=== PATIENT | female | born 1940 | race Caucasian/White ===

== ENCOUNTER 2021-11-20 12:52 | Outpatient (REF) | payer MEDICARE, MEDICAID, SELFPAY ==
--- NOTE | 2021-11-20 15:25 | MHC.AU.AHA ---
Adult Audiological Evaluation Date of Visit: 11/20/21 Reason for Appointment: Audiological re-evaluation to monitor the status of Ms. Rubi's hearing loss. She has a known bilateral, sensorineural hearing loss and uses a hearing aid in the left ear only. She notes that she broke her leg in February 2021 and has been staying at [facility] since then. She denies any significant changes to her hearing, but is concerned that she may have cerumen build-up. Previous Hearing Test Results: [facility] [place], 07/04/2020- Normal hearing sloping to a mild to moderately-severe sensorineural hearing loss bilaterally. Ear History: History of Ear Wax Buildup: Both Ears Medical History: Medical History: High Blood Pressure Medical History: Rheumatoid arthritis. Receiving OT and PT at [facility] due to broken femur in February 2021. Allergies: Povidone-iodine, codeine, penicillin, oxycodone, acetaminophen, betadine, benedine Medication List: Acetaminophen 325 mg PRN, amlodipine besylate 10 mg, ammonium lactate cream 12%, Artificial tears 1%, Ascorbic acid 250 mg, Aspirin 81 mg, Calcium/Vitamin D, Cetirizine HCl 10 mg, Cholecalciferol 1000 units, Dulcolax suppository 10 mg PRN, Ferrous sulfate 325 mg, Fleet enema PRN, Fosamax tablet 20 mg, Gas-x tablet, Glycolax powder, Imodium A-D tablet 2 mg, Leflunomide 20 mg, Milk of magnesia suspension 400 mg/5 mL, multivitamin, omeprazole 20 mg, Probiotic, Senna tablet 8.6 mg Hearing Instrument History- Left Ear: [employer]: [employer] Model: Nera 2 miniBTE Serial Number: [id number] Battery Size: 312 Warranty: 06/03/2017 Loss and Damage Warranty: 06/03/2017 Dispensed By: [facility] Date of Fittin05/12/2015 Otoscopy: Right Ear: Partially occluding cerumen removed with lighted curette without incident Left Ear: Completely occluding cerumen removed with lighted curette without incident Hearing Evaluation: Transducer(s) Used: Insert Earphones, Bone Conduction Method: Conventional Audiometry Stimuli Used: Pure Tones Right Ear: Description of Hearing: Normal hearing from 250-500 Hz, sloping to a mild to moderately-severe sensorineural hearing loss from 4704-2568 Hz. Left Ear: Description of Hearing: Mild sloping to moderately-severe sensorineural hearing loss from 250-8000 Hz. Speech Recognition Threshold (SRT): Method Used: Monitored Live Voice Stimuli Used: Spondee Words Right Ear: 35 dBHL Left Ear: 35 dBHL Word Discrimination: Method: Recorded Lists Word Lists Used: NU-6 Right Ear: 96% at 75 dBHL Left Ear: 92% at 75 dBHL Comparison: Compared to the most recent evaluation: Hearing is stable. Recommendations: Audiological re-evaluation in one year. Hearing aid maintenance performed today. Recommend use of cerumen softening/removal drops on a monthly basis to help prevent cerumen build-up. Diagnosis: Primary Diagnosis: H90.3 Bilateral Sensorineural Hearing Loss Secondary Diagnosis: H61.23 Impacted Cerumen, Bilateral Services Performed: Comprehensive Audiological Evaluation (CPT 86438) Signature: Provider: Mary Coffman, CCC-A
== END 2021-11-20 12:53 | disposition home or self-care (01) ==
LOC: HO.SH 12:52
PROVIDERS: Visit Provider Pediatrics
DX: Z13.5 Encounter for screening for eye and ear disorders (principal); H90.3 Sensorineural hearing loss, bilateral; H61.23 Impacted cerumen, bilateral
CPT/HCPCS: 92557